=== PATIENT | male | born 1980 | race African-American/Black ===

== ENCOUNTER 2016-10-23 09:02 | Emergency (ER) | payer MEDICAID ==
[2016-10-23 09:22] VITALS: BP 140/80
--- NOTE | 2016-10-23 10:26 | RAD ---
Indication: Foreign body in the left middle finger. 3 views of the left middle finger demonstrates radiopaque foreign body in the distal tip of the left middle finger. No other radiopaque foreign body is identified. IMPRESSION: Foreign body in the left middle finger.
[2016-10-23] MEDS ORDERED: Lidocaine 1% MPF* 2 ML VIAL INJ ONE (10:34)
--- NOTE | 2016-10-23 10:39 | UC ---
Skin Complaint HPI - HPI Summary HPI Summary: Patient presents to with small fish hook embedded on the ulnar side of the nail bed of the middle finger of the left hand. The injury occurred yesterday. He denies numbness, tingling, color or temperature changes. Denies swelling or redness from the area or any pain. He is otherwise healthy. No hx of MRSA or skin infections and is not immunocompromised. - History of Current Complaint Chief Complaint: UpperExtremity Time Seen by Provider: 10/23/16 10:03 Stated Complaint: HOOK IN FINGER Hx Obtained From: Patient Onset/Duration: Sudden Onset Skin Exposure Onset/Duration: Hours Ago Timing: Constant Onset Severity: Mild Current Severity: Mild Pain Intensity: 0 Pain Scale Used: 0-10 Numeric Location: Hand (Left) Aggravating: Nothing Alleviating: Nothing Associated Signs & Symptoms: Positive: Negative Related History: Trauma, Foreign Body - Allergy/Home Medications Allergies/Adverse Reactions: Allergies Allergy/AdvReac Type Severity Reaction Status Date / Time No Known Allergies Allergy Verified 09/02/15 02:39 Review of Systems Constitutional: Negative Skin: Other - fish hook Eyes: Negative ENT: Negative Respiratory: Negative Cardiovascular: Negative Motor: Negative Neurovascular: Negative Musculoskeletal: Negative Neurological: Negative All Other Systems Reviewed And Are Negative: Yes PMH/Surg Hx/FS Hx/Imm Hx Previously Healthy: Yes - Surgical History Surgical History: Yes Surgery Procedure, Year, and Place: [place] eye surgery - Family History Known Family History: Positive: Unknown - Social History Occupation: Employed Full-time Lives: With Family Alcohol Use: Weekly Substance Use Type: None Smoking Status (MU): Never Smoked Tobacco Physical Exam Triage Information Reviewed: Yes Appearance: Well-Appearing, No Pain Distress, Well-Nourished Vital Signs: Initial Vital Signs Temp 98.6 F 10/23/16 09:11 Pulse 72 10/23/16 09:11 Resp 20 10/23/16 09:11 BP 140/80 10/23/16 09:11 Pulse Ox 96 10/23/16 09:11 Vital Signs Reviewed: Yes Eye Exam: Normal Eyes: Positive: Conjunctiva Clear Neck exam: Normal Neck: Positive: No Lymphadenopathy Respiratory Exam: Normal Respiratory: Positive: Chest non-tender Cardiovascular Exam: Normal Cardiovascular: Positive: RRR Musculoskeletal Exam: Normal Musculoskeletal: Positive: Strength Intact Neurological Exam: Normal Neurological: Positive: Alert Psychological: Positive: Normal Response To Family, Age Appropriate Behavior Skin: Positive: Other - small .5cm barred fish hook embedded in the ulnar side of the nail bed of the left middle finger without swelling, erythema or drainage. Course/Dx - Course Course Of Treatment: Small .5cm barred fish hook embedded in the ulnar side of the nail bed of the left middle finger without swelling, erythema or drainage. Betadyne prep. digital block just distal to the MCP joint of the left middle finger. Forceps used for the pull-out method. Patient tolerated well. Keflex prescribed. Tetanus UTD. - Differential Diagnoses - Skin Complaint Differential Diagnoses: Other - foreign body, fish hook, skin infection - Diagnoses Provider Diagnoses: Foreign Body in Soft Tissue Discharge - Discharge Plan Condition: Stable Disposition: HOME Prescriptions: Cephalexin CAP* [Keflex CAP*] 250 mg PO QID #20 cap Patient Education Materials: Soft Tissue Foreign Body (ED) Referrals: Kelsey Hernandez MD [Primary Care Provider] - Additional Instructions: Follow up as needed. If you develop signs of infection such as redness, drainage, swelling, worsening pain or fever - return to .
== END 2016-10-23 11:06 | disposition home or self-care (01) ==
LOC: UCEAST 09:02
DX: S60.453A Superficial foreign body of left middle finger, initial encounter (principal); W45.8XXA Other foreign body or object entering through skin, initial encounter; Y92.9 Unspecified place or not applicable
CPT/HCPCS: 10120; 73140; 99212; G0463

== ENCOUNTER 2019-04-11 23:29 | Emergency (ER) | payer OTHER ==
--- NOTE | 2019-04-11 23:45 | ED ---
Lower Extremity - HPI Summary HPI Summary: Patient is a 39 y/o M presenting to [facility] with complaints of left knee pain. He states that he was [employer], went to [place], missed, fell, and landed on this knee. Injury occurred around 3-4 hours ago. No other injuries noted. He denies any other medical issues. Home medications and allergies are reviewed. - History of Current Complaint Chief Complaint: EDExtremityLower Stated Complaint: LEFT LEG INJURY PER PT Time Seen by Provider: 04/11/19 23:41 Hx Obtained From: Patient Mechanism Of Injury: Direct Blow Onset of Pain: Hours, Prior to Arrival Onset/Duration: Hours Pain Intensity: 3 Pain Scale Used: 0-10 Numeric Timing: Constant, Lasting Hours Location: Is Discrete @ - left knee Associated Signs And Symptoms: Positive: Knee Pain - left knee - Allergies/Home Medications Allergies/Adverse Reactions: Allergies Allergy/AdvReac Type Severity Reaction Status Date / Time No Known Allergies Allergy Verified 04/11/19 23:32 Home Medications: Home Medications NK [No Home Medications Reported] 04/11/19 [History Confirmed 04/11/19] PMH/Surg Hx/FS Hx/Imm Hx Endocrine/Hematology History: Denies: Hx Diabetes, Hx Thyroid Disease Cardiovascular History: Denies: Hx Hypertension Respiratory History: Denies: Hx Asthma, Hx Chronic Obstructive Pulmonary Disease (COPD) GI History: Denies: Hx Ulcer - Surgical History Surgery Procedure, Year, and Place: [place] eye surgery Infectious Disease History: No Infectious Disease History: Denies: Hx Clostridium Difficile, Hx Hepatitis, Hx Human Immunodeficiency Virus (HIV), Hx of Known/Suspected MRSA, Hx Shingles, Hx Tuberculosis, Hx Known/ Suspected VRE, Hx Known/Suspected VRSA, History Other Infectious Disease, Traveled Outside the [place] in Last 30 Days - Family History Known Family History: Negative: Cardiac Disease, Hypertension, Diabetes - Social History Alcohol Use: Weekly Substance Use Type: Reports: None Smoking Status (MU): Never Smoked Tobacco Review of Systems Negative: Fever - on vitals, temp is 99.3 F Musculoskeletal: Other - positive - left knee pain All Other Systems Reviewed And Are Negative: Yes Physical Exam - Summary Physical Exam Summary: Appearance: Well-appearing, Well-nourished, lying in bed comfortably Skin: Warm, dry, no obvious rash Eyes: sclera anicteric, no conjunctival pallor ENT: mucous membranes moist, pharynx appears normal Neck: Supple, nontender Respiratory: Clear to auscultation, no signs of respiratory distress Cardiovascular: Normal S1, S2. No murmurs. Normal distal pulses in tibial and radial bilaterally. Abdomen: Soft, nontender, normal active bowel sounds present Musculoskeletal: There is swelling over the left knee, visible and palpable defect of the patella consistent with patella fracture and patella tendon rupture, patient is unable to extend leg. Neurological: A&Ox3, awake and alert, mentation is normal, speech is fluent and appropriate Psychiatric: affect is normal, does not appear anxious or depressed Triage Information Reviewed: Yes Vital Signs On Initial Exam: Initial Vitals Temp Pulse Resp BP Pulse Ox 99.3 F 86 16 162/115 98 04/11/19 23:30 04/11/19 23:30 04/11/19 23:30 04/11/19 23:30 04/11/19 23:30 Vital Signs Reviewed: Yes Procedures - Sedation Patient Received Moderate/Deep Sedation with Procedure: No Diagnostics - Vital Signs Vital Signs Temp Pulse Resp BP Pulse Ox 04/11/19 23:30 99.3 F 86 16 162/115 98 - Laboratory Lab Statement: Any lab studies that have been ordered have been reviewed, and results considered in the medical decision making process. - Radiology LEFT KNEE X-RAY Radiology Interpretation Completed By: ED Physician Summary of Radiographic Findings: Left knee x-ray showed high riding patella with no fracture, pending official report. Re-Evaluation - Re-Evaluation First Eval Re-Evaluation Time: 00:10 Comment: X-ray and ortho consult were discussed with the patient, he will be discharged to home and follow up as instructed. He is agreeable with this plan. Lower Extremity Course/Dx - Course Course Of Treatment: Patient is a 39 y/o M presenting to [facility] with complaints of left knee pain. He states that he was [employer], went to [place], missed, fell, and landed on this knee. Injury occurred around 3-4 hours ago. No other injuries noted. He denies any other medical issues. There is swelling over the left knee, visible and palpable defect of the patella consistent with patella fracture and patella tendon rupture, patient is unable to extend leg. Left knee x-ray showed high riding patella with no fracture. Patient's case was discussed with Dr. Pagan, he states that the patient can be discharged to home with knee immobilizer, crutches, and outpatient follow up with him in office. X-ray and ortho consult were discussed with the patient, he will be discharged to home with immobilizer and crutches and follow up as instructed. He is agreeable with this plan. - Diagnoses Provider Diagnoses: Rupture of left patellar tendon - Physician Notifications Discussed Care Of Patient With: Earl Pagan Time Discussed With Above Provider: 00:07 Instructed by Provider To: Other - Patient's case was discussed with Dr. Pagan, he states that the patient can be discharged to home with knee immobilizer, crutches, and outpatient follow up with him in office. Discharge ED - Sign-Out/Discharge Documenting (check all that apply): Patient Departure - discharge - Discharge Plan Condition: Good Disposition: HOME Patient Education Materials: Tendon Rupture (ED) Referrals: Earl Pagan MD [Medical Doctor] - Additional Instructions: Dr. Pagan would like to see you in his office on Saturday, so just call at 8: 30 am then. The staff should have your info and will give you a time to come in. In the meantime we have given you a knee brace and crutches so you can get around. Your patella tendon has ruptured, so you will be unable to extend your leg (i.e. kick) until it is repaired. Dr. Pagan and his staff will go over the surgery and rehab with you then. - Attestation Statements Document Initiated by Scribe: Yes Documenting Scribe: ALBERTA MCNEAL Provider For Whom Nuvia is Documenting (Include Credential): GRICELDA BLAND MD Scribe Attestation: I, ALBERTA MCNEAL, scribed for GRICELDA BLAND MD on 04/12/19 at 0018. Status of Scribe Document: Ready
[2019-04-12 00:31] VITALS: BP 174/108
== END 2019-04-12 00:30 | disposition home or self-care (01) ==
LOC: ED 23:29
DX: S76.112A Strain of left quadriceps muscle, fascia and tendon, initial encounter (principal); W19.XXXA Unspecified fall, initial encounter; Y93.39 Activity, other involving climbing, rappelling and jumping off; Y92.89 Other specified places as the place of occurrence of the external cause
CPT/HCPCS: 99282

== ENCOUNTER 2019-04-25 14:00 | Emergency (ER) | payer OTHER ==
--- OUTSIDE RECORDS SUMMARY | 2019-04-25 15:10 | XMS REPORT | Summary of Care ---
:1980 Author Organization [facility] Address [address] [address] Care Team Providers Name Role Phone None, [place] Primary Care Provider Unavailable Encounter Details Date Type Department Care Team Description 04/21/2019 Hospital Encounter [facility] Out[facility] [address] [address] Allergies No Known Allergiesdocumented as of this encounter (statuses as of 04/23/2019) Medications No known medicationsdocumented as of this encounter (statuses as of 04/23/2019) Active Problems Problem Noted Date Patellar tendon rupture, left, initial encounter 04/21/2019 Overview: Added automatically from request for surgery [id number] documented as of this encounter (statuses as of 04/23/2019) Social History Tobacco Use Types Packs/Day Years Used Date Never Smoker 0 Smokeless Tobacco: Never Used Alcohol Use Drinks/Week oz/Week Comments Yes Alcohol Habits Answer Date Recorded How often do you have a drink containing alcohol? 2-3 times a week 04/21/2019 How many drinks containing alcohol do you have on a Not asked typical day when you are drinking? How often do you have six or more drinks on one Not asked occasion? Sex Assigned at Date Recorded Not on file Job Start Date Occupation Industry Not on file Not on file Not on file Travel History Travel Start Travel End No recent travel history available. documented as of this encounter Last Filed Vital Signs Not on filedocumented in this encounter Plan of Treatment Date Type Specialty Care Team Description 04/27/2019 Office Visit Orthopedics Cheryl Gilbert PA-C [address] [address] 04/27/2019 [facility] Procedure MD [address] [address] 04/27/2019 [facility], KEIRA RUPTURED MD PATELLAR TENDON LEFT [address] [address] [phone] 05/15/2019 Office Visit Orthopedics Magdiel Cortez MD [address] [address] [phone] Name Type Priority Associated Diagnoses Date/Time XR KNEE 4 OR MORE Imaging Routine Chronic pain of left knee 04/21/2019 3: 42 PM EST VIEWS LEFT (STANDARD) Name Type Priority Associated Diagnoses Order Schedule XR KNEE 4 OR MORE Imaging Routine Chronic pain of left 1 Occurrences starting VIEWS LEFT knee 04/21/2019 until (STANDARD) 04/21/2019 Health Maintenance Due Date Last Done Comments DTaP/Tdap/Td Vaccines (1 - Tdap) 1989 DEPRESSION SCREENING 1990 HIV SCREENING 1993 DIABETES SCREENING 02/10/1996 LIPID DISORDER SCREENING 02/10/1996 INFLUENZA VACCINE (#1) 2019 HEPATITIS A IMMUNIZATION SERIES Aged Out No longer eligible based on patient's age to complete this topic HPV IMMUNIZATION SERIES Aged Out No longer eligible based on patient's age to complete this topic MENINGOCOCCAL VACCINE IMM Aged Out No longer eligible based on patient's age to complete this topic PNEUMOCOCCAL 0-64 YRS Aged Out No longer eligible based on patient's age to complete this topic documented as of this encounter Results Not on filedocumented in this encounter Visit Diagnoses Diagnosis Patellar tendon rupture, left, initial encounter Diagnosis Patellar tendon rupture, left, initial encounter Diagnosis Chronic pain of left knee Pain in joint, lower leg documented in this encounter
--- OUTSIDE RECORDS SUMMARY | 2019-04-25 15:10 | XMS REPORT | Continuity of Care Document ---
:1980 External Reference #:[id number] Author Name Earl Pagan MD (transmitted by agent of provider Kimberly Chao) Address [address] [place] [address] Problems Description No Information Available Social History Type Date Description Comments Sex Unknown Tobacco Use Start: Unknown Patient has never smoked Smoking Status Reviewed: 04/15/19 Patient has never smoked Allergies, Adverse Reactions, Alerts Description No Known Drug Allergies Medications Active Medications SIG Qnty Indications Ordering Provider Date Ibuprofen as needed Unknown 200mg Tablets Immunizations Description No Information Available Vital Signs Date Vital Result Comment 04/15/2019 3:07pm Height 70 inches 5'10" Weight 230.00 lb Heart Rate 72 /min BP Systolic Sitting 132 mmHg BP Diastolic Sitting 86 mmHg Body Temperature 98.4 F Pain Level 4 BMI (Body Mass Index) 33.0 kg/m2 Results Description No Information Available Procedures Description No Information Available Medical Devices Description No Information Available Encounters Description No Information Available Assessments Date Code Description Provider 04/15/2019 M66.862 Spontaneous rupture of other tendons, left lower Earl Pagan MD leg Plan of Treatment Future Appointment(s):05/01/2019 2:45 pm - Earl Pagan MD at [facility] at [id number]/16/2019 6:00 pm - Earl Pagan MD at [facility] at [id number]/15/2019 - Earl Pagan [id number] Spontaneous rupture of other tendons, left lower legFollow up:13-15 days post op Functional Status Description No Information Available Mental Status Description No Information Available Referrals Description No Information Available
--- NOTE | 2019-04-25 17:05 | ED ---
Throat Pain/Nasal Congestion - HPI Summary HPI Summary: This patient is a 39-year-old male presenting to the ED with eye trauma yesterday. He states he fell and hit his eye on a wooden table. Occurred yesterday. Denies any pain. Does endorse swelling and tearing from the eye without evidence of FB. Denies visual changes or symptoms of entrapment. Feeling otherwise well. Concered d/t appearance of hemorrhage. - History of Current Complaint Chief Complaint: EDEyeProblem Time Seen by Provider: 04/25/19 15:12 Hx Obtained From: Patient Onset/Duration: Sudden Onset Associated Signs And Symptoms: Positive: Negative - Allergies/Home Medications Allergies/Adverse Reactions: Allergies Allergy/AdvReac Type Severity Reaction Status Date / Time No Known Allergies Allergy Verified 04/11/19 23:32 PMH/Surg Hx/FS Hx/Imm Hx Previously Healthy: Yes Endocrine/Hematology History: Denies: Hx Diabetes, Hx Thyroid Disease Cardiovascular History: Denies: Hx Hypertension Respiratory History: Denies: Hx Asthma, Hx Chronic Obstructive Pulmonary Disease (COPD) GI History: Denies: Hx Ulcer - Surgical History Surgery Procedure, Year, and Place: lasik eye surgery - Immunization History Hx Pertussis Vaccination: No Immunizations Up to Date: Yes Infectious Disease History: No Infectious Disease History: Denies: Hx Clostridium Difficile, Hx Hepatitis, Hx Human Immunodeficiency Virus (HIV), Hx of Known/Suspected MRSA, Hx Shingles, Hx Tuberculosis, Hx Known/ Suspected VRE, Hx Known/Suspected VRSA, History Other Infectious Disease, Traveled Outside the [place] in Last 30 Days - Family History Known Family History: Positive: Unknown Negative: Cardiac Disease, Hypertension, Diabetes - Social History Occupation: Employed Full-time Lives: With Family Alcohol Use: Weekly Hx Substance Use: No Substance Use Type: Reports: None Hx Tobacco Use: No Smoking Status (MU): Never Smoked Tobacco Review of Systems Negative: Fever, Chills, Fatigue, Skin Diaphoresis Eyes: Other - hemorrhage without portrusion, blurred vision or signs of laceration/tear Negative: Palpitations, Chest Pain Negative: Shortness Of Breath, Cough Genitourinary: Negative Positive: no symptoms reported, see HPI Negative: Arthralgia, Myalgia Skin: Negative Neurological: Negative All Other Systems Reviewed And Are Negative: Yes Physical Exam Triage Information Reviewed: Yes Vital Signs On Initial Exam: Initial Vitals Temp Pulse Resp BP Pulse Ox 98.3 F 86 16 121/87 98 04/25/19 14:05 04/25/19 14:05 04/25/19 14:05 04/25/19 14:05 04/25/19 14:05 Vital Signs Reviewed: Yes Appearance: Positive: Well-Appearing, Well-Nourished Skin: Positive: Skin Color Reflects Adequate Perfusion Head/Face: Positive: Normal Head/Face Inspection Eyes: Positive: EOMI, NADYA, Conjunctiva Inflammed, Other: - chemosis with hemorrhage, no evidence of hyphema Neck: Positive: Supple, No Lymphadenopathy Respiratory/Lung Sounds: Positive: Clear to Auscultation, Breath Sounds Present Cardiovascular: Positive: RRR, Pulses are Symmetrical in both Upper and Lower Extremities Musculoskeletal: Positive: Strength/ROM Intact Psychiatric: Positive: Affect/Mood Appropriate Procedures - Sedation Patient Received Moderate/Deep Sedation with Procedure: No Diagnostics - Vital Signs Vital Signs Temp Pulse Resp BP Pulse Ox 04/25/19 14:05 98.3 F 86 16 121/87 98 - Laboratory Lab Statement: Any lab studies that have been ordered have been reviewed, and results considered in the medical decision making process. EENT Course/Dx - Course Course Of Treatment: This patient is a 39-year-old male presenting to the ED with eye trauma yesterday. He states he fell and hit his eye on a wooden table. No obvious perforation with teardrop pupil, vitreous extrusion, or protruding intraocular foreign body. No orbital compartment syndrome, hyphema, evidence of increased intraorbital pressure or evidence of abrasions. There does appear to be a significant subconjunctival hemorrage with chemosis. No visual changes, no JOHANSEN. Pt states he has not pain and denies any pain with eye movement left to right or up and down. No evidence of FB. Pt continues to be able to open and close the eye without difficulty. No abrasion seen with fluoroscein. No abx given as this appears to be trauma. No fevers. No pain or evidence of trauma around the eye to the orbital compartment. CT orbit obtained: IMPRESSION: 1. Superficial soft tissue injury overlying the left orbit without underlying bony fracture or evidence of post septal orbital injury. 2. Mild degree of bilateral anterior ethmoid air cell because the thickening. Patient is encouraged to follow up with ophthalmology immediately on dominga. Patient agrees to plan and is discharged to home. He will return if he develops any pain, visual changes or worsening symptoms. - Differential Diagnoses Differential Diagnoses: Other - conjunctival hemorrhage, corneal abrasion - Diagnoses Provider Diagnoses: Eye trauma Discharge ED - Sign-Out/Discharge Documenting (check all that apply): Patient Departure - Discharge Plan Condition: Stable Disposition: HOME Referrals: Tramaine Kolb MD [Medical Doctor] - Kelsey Hernandez MD [Primary Care Provider] - Ozzie Avilez MD [Medical Doctor] - Additional Instructions: Please follow up with ophthalmology - Billing Disposition and Condition Condition: STABLE Disposition: Home
[2019-04-25 17:12] VITALS: BP 126/80
== END 2019-04-25 17:10 | disposition home or self-care (01) ==
LOC: ED 14:00
DX: S05.92XA Unspecified injury of left eye and orbit, initial encounter (principal); W22.09XA Striking against other stationary object, initial encounter; Y92.9 Unspecified place or not applicable
CPT/HCPCS: 70480; 99282